=== PATIENT | male | born 1945 | race Caucasian/White ===

== ENCOUNTER → 2018-01-28 | Outpatient (CLI) | payer OTHER ==
[~2018-01-28] MED LIST: METO-95 PO; OMNIPAQUE 350 MG/ML, 100ML BOTTLE ONE; SIMV20TA3 PO
== END | disposition home or self-care (01) ==
LOC: CFH 12:51
PROVIDERS: ATTEND Internal Medicine
DX: K57.30 Diverticulosis of large intestine without perforation or abscess without bleeding (principal); E27.8 Other specified disorders of adrenal gland; M79.605 Pain in left leg
CPT/HCPCS: 74177; Q9967

== ENCOUNTER 2019-11-10 19:21 | Emergency (ER) | payer MEDICARE, OTHER ==
[~2019-11-10] VITALS: Ht 177.8 cm; Wt 78.0 kg
[~2019-11-10 19:21] MED LIST changes: -OMNIPAQUE 350 MG/ML, 100ML BOTTLE ONE; +SIMV20TA19 PO; -SIMV20TA3 PO
[2019-11-10 19:24] VITALS: BP 134/79
[2019-11-10] MEDS ORDERED: CEFTRIAXONE PMX 1GM/50ML 50 ML ONE (21:40)
== END 2019-11-10 20:23 ==
LOC: ED 20:00
DX: S29.8XXA Other specified injuries of thorax, initial encounter (principal); I10 Essential (primary) hypertension; W01.198A Fall on same level from slipping, tripping and stumbling with subsequent striking against other object, initial encounter; Y93.89 Activity, other specified; Y92.098 Other place in other non-institutional residence as the place of occurrence of the external cause; Y99.8 Other external cause status
CPT/HCPCS: 71046; 99283